=== PATIENT | female | born 1980 | race Two or more races ===

== ENCOUNTER 2021-01-22 03:27 | Emergency (ER) | payer MEDICAID ==
[~2021-01-22] VITALS: Ht 157.5 cm; Wt 98.0 kg
[2021-01-22] MEDS ORDERED: EPINEPHrine 1 MG/ML VIAL SQ ONE (04:00)
[2021-01-22] MEDS ORDERED: FAMOTIDINE 20 MG/2 ML VIAL IVP ONE (04:00)
[2021-01-22] MEDS ORDERED: methylPREDNISolone SOD SUCC PF 125 MG/2 ML VIAL. IV ONE (04:00)
[2021-01-22] MEDS ORDERED: IV NORMAL SALINE 1000ML BAG 1,000 ML IV ONE (04:00)
--- NOTE | 2021-01-22 04:09 | PHYS DOC ---
Past Medical History Past Medical History: Diabetes-Type II Past Surgical History: Cholecystectomy, Smoking Status: Current Every Day Smoker Alcohol Use: Occasionally General Adult EDM: Chief Complaint: ALLERGIC REACTION HPI: HPI: Patient is a 40 year old female presents for evaluation of swelling of extremities, itch, and nausea and vomiting. States prior to arrival she awoke to go to the bathroom. While in the bathroom she noticed tingling and itching in her feet. Patient went to sleep and then woke up with tingling and itching in her hands. Patient noticed hands and feet had started to swell. Patient had associated nausea and vomited. Patient vomited multiple times as well as had some diarrhea. Patient states at that time she felt short of breath and had some chest discomfort. Upon EMS arrival they treated patient with 50 of Benadryl. Shortly after arrival to the emergency department patient was treated with IV fluids subcu epi Solu-Medrol and Pepcid. At the time my exam patient's swelling and itching greatly improved. Patient still states she had some chest discomfort. Review of Systems: Review of Systems: Constitutional: Denies fever or chills. [] Eyes: Denies change in visual acuity. [] HENT: Denies nasal congestion or sore throat. [] Respiratory: Denies cough positive shortness of breath. [] Cardiovascular: positive chest pain GI: Denies abdominal pain, nausea, vomiting, bloody stools or diarrhea. [] : Denies dysuria. [] Musculoskeletal: Denies back pain or joint pain. [] Integument: positive rash. [] Neurologic: Denies headache, focal weakness or sensory changes. [] Endocrine: Denies polyuria or polydipsia. [] Lymphatic: Denies swollen glands. [] Psychiatric: Denies depression or anxiety. [] Heart Score: C/O Chest Pain: N/A Risk Factors: Risk Factors: DM, Current or recent (<one month) smoker, HTN, HLP, family history of CAD, obesity. Risk Scores: Score 0 - 3: 2.5% MACE over next 6 weeks - Discharge Home Score 4 - 6: 20.3% MACE over next 6 weeks - Admit for Clinical Observation Score 7 - 10: 72.7% MACE over next 6 weeks - Early Invasive Strategies Current Medications: Current Medications Medications (Trade) Dose Ordered Sig/Stephania Start Time Stop Time Status Last Admin Dose Admin Epinephrine HCl (Adrenalin) 0.3 mg 1X ONCE 01/22/21 04:00 01/22/21 04:01 DC 01/22/21 03:44 0.3 MG Famotidine (Pepcid Vial) 40 mg 1X ONCE 01/22/21 04:00 01/22/21 04:01 DC 01/22/21 03:44 40 MG Methylprednisolone Sodium Succinate (SOLU-Medrol 125MG VIAL) 125 mg 1X ONCE 01/22/21 04:00 01/22/21 04:01 DC 01/22/21 03:44 125 MG Sodium Chloride 1,000 ml @ 1,000 mls/hr 1X ONCE 01/22/21 04:00 01/22/21 04:59 01/22/21 03:45 1,000 MLS/HR Allergies: Allergies: Allergies Coded Allergies Type Severity Reaction Last Updated Verified No Known Drug Allergies 01/22/21 No Physical Exam: PE: Constitutional: Well developed, well nourished, no acute distress, non-toxic appearance. [] HENT: Normocephalic, atraumatic, bilateral external ears normal, oropharynx moist, no oral exudates, nose normal. [] Eyes: PERRLA, EOMI, conjunctiva normal, no discharge. [] Neck: Normal range of motion, no tenderness, supple, no stridor. [] Cardiovascular:Heart rate regular rhythm, no murmur [] Lungs & Thorax: Bilateral breath sounds clear to auscultation [] Abdomen: Bowel sounds normal, soft, no tenderness, no masses, no pulsatile masses. [] Skin: swelling hands legs, flushed Back: No tenderness, no CVA tenderness. [] Extremities: No tenderness, no cyanosis, no clubbing, ROM intact, no edema. [] Neurologic: Alert and oriented X 3, normal motor function, normal sensory function, no focal deficits noted. [] Psychologic: Affect normal, judgement normal, mood normal. [] Current Patient Data: Vital Signs: Vital Signs Date Time Temp Pulse Resp B/P (MAP) Pulse Ox O2 Delivery O2 Flow Rate FiO2 01/22/21 03:52 98.0 82 18 127/67 (87) 91 Room Air 98.0 EKG: EKG: [] Radiology/Procedures: Radiology/Procedures: [] Course & Med Decision Making: Course & Med Decision Making Pertinent Labs and Imaging studies reviewed. (See chart for details) [] Rated with Solu-Medrol Benadryl Pepcid and IV fluids. Patient was observed symptoms resolved. Grant Disclaimer: Grant Disclaimer: This electronic medical record was generated, in whole or in part, using a voice recognition dictation system. Departure Departure Impression: Primary Impression: Allergic reaction Disposition: HOME / SELF CARE / HOMELESS Condition: STABLE Patient Instructions: Food Allergy and Anaphylaxis Scripts Prednisone (PREDNISONE) 20 Mg Tablet 2 TAB PO UD for 5 Days, #15 TAB Prov: NATE BURKETT DO 01/22/21 NATE BURKETT DO Jan 22, 2021 04:09
[2021-01-22 05:00] VITALS: BP 106/55
[2021-01-22] MEDS ORDERED: PRED20TA PO (05:22)
== END 2021-01-22 05:33 | disposition home or self-care (01) ==
LOC: ER 03:27
DX: T78.40XA Allergy, unspecified, initial encounter (principal); R07.89 Other chest pain; R11.2 Nausea with vomiting, unspecified; R19.7 Diarrhea, unspecified; E11.9 Type 2 diabetes mellitus without complications; F17.200 Nicotine dependence, unspecified, uncomplicated; Z90.49 Acquired absence of other specified parts of digestive tract; Z98.890 Other specified postprocedural states; X58.XXXA Exposure to other specified factors, initial encounter
CPT/HCPCS: 96361; 96372; 96374; 96375; 99285; J0171; J2930; J3490; J7030